=== PATIENT | female | born 1995 | race Caucasian/White ===

== ENCOUNTER 2017-01-01 22:11 | Emergency (ER) | payer OTHER ==
[~2017-01-01] VITALS: Ht 170.2 cm; Wt 63.6 kg
[2017-01-01 22:13] VITALS: BP 135/71
[2017-01-01] MEDS ORDERED: INDERAL 20MG20 MG PO (22:16)
[2017-01-01] MEDS ORDERED: TRI-SPRINTEC 281 TAB (22:17)
[2017-01-01 23:01] VITALS: PULSE 64; TEMP 98.4
== END 2017-01-01 23:02 | disposition home or self-care (01) ==
LOC: COL.ER 22:11
DX: R59.0 Localized enlarged lymph nodes (principal)